=== PATIENT | male | born 1975 | race Caucasian/White ===

== ENCOUNTER 2018-06-16 17:22 | Emergency (ER) | payer BC ==
--- OUTSIDE RECORDS SUMMARY | 2018-06-16 17:38 | XMS REPORT ---
:1975 External Reference #:[id number] Author Organization [facility] Address [address] [place] [address] Phone [phone] Care Team Providers Name Role Phone Gabriel Christian MD Care Team Information Production Tester Unavailable Gabriel Christian MD Primary Care Physician Unavailable Payers Type Date Identification Numbers Payment Provider Subscriber Commercial Policy Number: [id number] [place] Plan Simeon Flores PayID: [id number] [address] [place] [address] Problems Description No Information Family History Date Family Member(s) Problem(s) Comments Father 69 Father Ankylosing Spondylitis Father Carcinoma Of Thyroid Mother 69 Mother Diabetes Mellitus, II Grandmother Breast Cancer BRCA+ Social History Type Date Description Comments Smoking Patient has never smoked Allergies, Adverse Reactions, Alerts Date Description Reaction Status Severity Comments 04/11/2018 NKDA active Medications Medication Date Status Form Strength Qnty SIG Indications Ordering Provider No Active 04/11/2018 Active Unknown Medications Vital Signs Date Vital Result Comment 05/20/2018 BP Systolic 118 mmHg BP Diastolic 64 mmHg Heart Rate 78 /min Body Temperature 98.5 F Respiratory Rate 16 /min Height 69 inches 5'9" Weight 191.12 lb BMI (Body Mass Index) 28.2 kg/m2 04/11/2018 BP Systolic 118 mmHg BP Diastolic 70 mmHg Heart Rate 60 /min Body Temperature 97.8 F Respiratory Rate 18 /min Height 69 inches 5'9" Weight 180.00 lb BMI (Body Mass Index) 26.6 kg/m2 Results Description No Information Procedures Description No Information Encounters Type Date Location Provider CPT E/M Dx Office Visit 04/11/2018 10:50a [facility] Office Gabriel Christian, [address] D23.5 Plan of Care 05/20/2018 - Gabriel Christian, MDM26.11 Maxillary asymmetryAllComments:~B_~U _Medication Management~b_~u_ Patient Understands medications he's taking? Yes No Are there Barriers to Adherence? Yes No Has the patient been asked about herbal supplements and therapies, and OTC meds? Yes No
[2018-06-16] MEDS: Tetan/Diph/Pertus SYR(Tdap)* 0.5 ML SYR(BOOSTRIX) use SYR IM ONE ×2 (18:51→20:12)
--- NOTE | 2018-06-16 18:51 | RAD ---
Indication: LEFT forearm pain following laceration due to dog bite today. Comparison: No relevant prior exams available on the [facility] PACS for comparison. Technique: AP and lateral views LEFT radius and ulna. REPORT AND IMPRESSION: #. Extensive subcutaneous emphysema involving the dorsal and volar aspects corresponding with history of soft tissue laceration. No conspicuous foreign body evident. #. Negative for acute fracture or articular malalignment. #. Accessory ossicle versus ultrasound examination fragment noted.
[2018-06-16] MEDS ORDERED: Amoxicillin/Clavulanate TAB* 875 MG PO ONE (19:54)
--- NOTE | 2018-06-16 20:24 | ED ---
Bite Injury/Animal - HPI Summary HPI Summary: Patient complains of dog bite to left forearm and right wrist and hand. Dog is known to patient, vaccinations up-to-date. Denies loss of sensation or function distally. Ankle history is none. - History of Current Complaint Chief Complaint: EDExtremityUpper Stated Complaint: LT ARM LAC/DOG BITE Time Seen by Provider: 06/16/18 18:08 Hx Obtained From: Patient Onset of Injury: Happened hours ago Type of Bite: Animal Has Animal Been Immunized?: Yes Severity Initially: Moderate Severity Currently: Moderate Pain Intensity: 6 Pain Scale Used: 0-10 Numeric Character: Puncture, Abrasion/Laceration Associated Signs And Symptoms: Positive: Swelling. Negative: Erythema, Numbness /Tingling, Limited ROM - Allergies/Home Medications Allergies/Adverse Reactions: Allergies Allergy/AdvReac Type Severity Reaction Status Date / Time No Known Allergies Allergy Verified 06/16/18 17:32 PMH/Surg Hx/FS Hx/Imm Hx Endocrine/Hematology History: Denies: Hx Anticoagulant Therapy Cardiovascular History: Denies: Hx Cardiac Arrest History: Denies: Hx Dialysis Neurological History: Denies: Hx CVA - Immunization History Date of Tetanus Vaccine: pt is up to date Infectious Disease History: No Infectious Disease History: Denies: Traveled Outside the [place] in Last 30 Days - Social History Alcohol Use: Rare Substance Use Type: Reports: None Smoking Status (MU): Never Smoked Tobacco Review of Systems Constitutional: Negative Eyes: Negative ENT: Negative Cardiovascular: Negative Respiratory: Negative Gastrointestinal: Negative Genitourinary: Negative Musculoskeletal: Negative Skin: Other Neurological: Negative Psychological: Normal All Other Systems Reviewed And Are Negative: Yes Physical Exam - Summary Physical Exam Summary: 2 puncture wounds to the dorsal surface of left forearm. One puncture wound to volar surface of left forearm. Puncture wound to the volar surface of right wrist. Abrasions to right hand. PMS intact distally on both hands. No loss of flexion or extension of any finger or wrist. Triage Information Reviewed: Yes Vital Signs On Initial Exam: Initial Vitals Temp Pulse Resp BP Pulse Ox 98.1 F 66 16 118/86 96 06/16/18 17:26 06/16/18 17:26 06/16/18 17:26 06/16/18 17:26 06/16/18 17:26 Vital Signs Reviewed: Yes Appearance: Positive: Well-Appearing Skin: Positive: Warm Head/Face: Positive: Normal Head/Face Inspection Eyes: Positive: Normal Neck: Positive: Supple Respiratory/Lung Sounds: Positive: Clear to Auscultation Cardiovascular: Positive: Normal Abdomen Description: Positive: Nontender Musculoskeletal: Positive: Normal Neurological: Positive: Normal Psychiatric: Positive: Normal AVPU Assessment: Alert - Jamil Coma Scale Best Eye Response: 4 - Spontaneous Best Motor Response: 6 - Obeys Commands Best Verbal Response: 5 - Oriented Coma Scale Total: 15 Procedures - Laceration/Wound Repair 1 Location: upper extremity Description: Linear Anesthesia: Local, 1.0% Length, Depth and Shape: 2.5cm x 1cm Betadine Prep?: No - chlorhexidine prep Irrigated w/ Saline (ccs): 50 - chlorhexidine saline Laceration/Wound Explored: clean Debridement: minimal Suture Type: Prolene Number of Sutures: 1 - 4.0 Layer Closure?: No Diagnostics - Vital Signs Vital Signs Temp Pulse Resp BP Pulse Ox 06/16/18 17:26 98.1 F 66 16 118/86 96 - Laboratory Lab Statement: Any lab studies that have been ordered have been reviewed, and results considered in the medical decision making process. - Radiology forearm Xray Interpretation: No Acute Changes Radiology Interpretation Completed By: Radiologist Bite Injury Course/Dx - Course Course Of Treatment: Patient complains of dog bite to left forearm and right wrist and hand. Dog is known to patient, vaccinations up-to-date. Denies loss of sensation or function distally. Ankle history is none. 2 puncture wounds to the dorsal surface of left forearm. One puncture wound to volar surface of left forearm. Puncture wound to the volar surface of right wrist. Abrasions to right hand. PMS intact distally on both hands. No loss of flexion or extension of any finger or wrist. X-ray of left forearm negative. Wound on dorsal left forearm 2.5 cm x 1 cm. One suture placed. Follow-up with her wounds left open. Wounds flushed extensively with saline and chlorhexidine. Wrapped with bacitracin, Telfa pads, curlex Rx for Augmentin. Patient started first dose here in ED. - Diagnoses Provider Diagnosis: Dog bite, Laceration Discharge - Sign-Out/Discharge Documenting (check all that apply): Patient Departure - Discharge Plan Condition: Stable Disposition: HOME Prescriptions: Amoxicillin/Clavulanate TAB* [Augmentin TAB 875*] 875 mg PO BID #20 tab Patient Education Materials: Animal Bite (ED), Care For Your Stitches (ED), Laceration (ED), Laceration Without Closure (ED) Referrals: No Primary Care Phys,NOPCP [Primary Care Provider] - Additional Instructions: Sutures should come out in 10 days. May wash wound with warm running water and soap after 12 hours. Do not submerge. Take antibiotics as directed. Return to the ED for any new or worsening symptoms - Billing Disposition and Condition Condition: STABLE Disposition: Home
[2018-06-16 20:47] VITALS: BP 120/80
== END 2018-06-16 20:45 | disposition home or self-care (01) ==
LOC: ED 17:22
DX: S51.832A Puncture wound without foreign body of left forearm, initial encounter (principal); S61.531A Puncture wound without foreign body of right wrist, initial encounter; S60.511A Abrasion of right hand, initial encounter; S51.812A Laceration without foreign body of left forearm, initial encounter; W54.0XXA Bitten by dog, initial encounter; Y93.9 Activity, unspecified; Y92.9 Unspecified place or not applicable; Z23 Encounter for immunization
CPT/HCPCS: 12001; 90471; 90715; 99282; A9270-GY